=== PATIENT | female | born 1960 | race Caucasian/White ===

== ENCOUNTER 2020-07-27 15:02 | Observation (INO) | payer SELFPAY ==
--- NOTE | ~2020-07-27 | CT_ITS ---
EXAMINATION: CT abdomen pelvis wo con DATE: 07/27/2020 17:51 INDICATION: Abdominal pain TECHNIQUE: Computed tomography (CT) of the abdomen and pelvis was performed without intravenous contr ast. The dose-length product was 1158.01 mGy-cm. Automated exposure control and iterative reconstruct ion technique were employed. COMPARISON: None. FINDINGS: Lung bases are unremarkable. Heart size is normal. No significant pleural or pericardial ef fusion. No significant vascular abnormality. No lymphadenopathy. The liver, spleen, pancreas, adrenal glands and kidneys are unremarkable. There is a fat-containing u mbilical hernia. No abnormal pelvic masses or fluid collections. Uterus is surgically absent. No foca l bowel abnormalities. No acute osseous abnormality. IMPRESSION: 1. No acute abdominal abnormality. Reviewed, dictated and finalized at location A.
[2020-07-27 15:09] VITALS: BP 151/68; PULSE 98; O2SAT 100
[2020-07-27 15:56] LABS: Hemoglobin 13.2 g/dL (12.0-15.0); Immature Platelet Fraction Pct 4.3 % (0.9-11.2); Mean Corpuscular Hemoglobin 30.4 pg (26-34); Mean Corpuscular Volume 92.2 fl (80-100); Mean Platelet Volume 9.9 fl (7.4-10.4); Platelet Count Result 641 k/mm3 (150-375); Red Blood Count 4.34 M/mm3 (4.2-5.4); Red Cell Distribution Width 14.7 % (11.5-14.5); White Blood Count 29.1 K/mm3 (4.5-10.0)
[2020-07-27 16:08] LABS: Add Urine Microscopic? YES; Appearance Urine Cloudy (Clear); Bacteria Urine Trace /hpf; Bilirubin Urine Negative (Negative); Blood Urine Negative (Negative); Color Urine Yellow (Yellow); Glucose Urine UA Negative (Negative); Hyaline Casts Urine 30-49 /lpf; Ketones Urine Negative (Negative); Leukocyte Esterase Ur Negative LEU/UL (Negative); Mucus Urine Rare /lpf; Nitrate Urine Negative (Negative); Protein Urine 2+ mg/dL (Negative); RBC Urine 0-2 /hpf (0-2); Specific Grav Ur 1.018 (1.001-1.035); Squamous Epithelial Cell Urine Occasional /hpf (Few); Urobilinogen Urine Negative mg/dL (<2.0); WBC Urine 0-3 /hpf
[2020-07-27 16:14] LABS: Lipase 89 U/L (23-300)
[2020-07-27 16:16] LABS: Lymphocytes Absolute Manual 4.94 K/mm3 (1.1-4.5); Monocytes Absolute Manual 1.74 K/mm3 (0.1-0.90); Monocytes Percent Manual 6 % (3-9); Neutrophils Percent Manual 77 % (46-73); Platelet Estimate Increased (Adequate); Total Cells Counted 100
[2020-07-27 16:17] LABS: Anisocytosis 2+ (NORMAL)
[2020-07-27] MEDS: HYOSCYAMINE SULFATE 0.125 MG TABLET PO (16:38)
[2020-07-27 17:07] VITALS: BP 147/82; PULSE 84; RESP 18; TEMP 36.1; O2SAT 99
[2020-07-27] MEDS: SODIUM CHLORIDE 0.9% IV 1,000 ML 999 ML IV CONT ×2 (17:24→18:24)
[2020-07-27] MEDS: FAMOTIDINE 20 MG/2 ML VIAL IV PUSH (17:24)
[2020-07-27] MEDS: ONDANSETRON INJ 4 MG/2 ML VIAL IV PUSH (17:24)
[2020-07-27 17:27] LABS: Alanine Aminotransferase 109 U/L (4-35); Albumin Level 4.5 g/dL (3.5-5.1); Alkaline Phosphatase 130 U/L (38-126); Anion Gap 13 mmol/L (8-16); Aspartate Amino Transferase 84 U/L (14-36); Bilirubin,Total 0.9 mg/dL (0.2-1.3); Blood Urea Nitrogen 63 mg/dL (7-17); Calcium 9.9 mg/dL (8.4-10.2); Carbon Dioxide 23 mmol/L (22-30); Chloride 101 mmol/L (98-107); Estimated CRCL calculation 26 ml/min; Estimated Glomerular Filt Rate 21; Glucose 135 mg/dL (65-105); Potassium 3.9 mmol/L (3.4-5.0); Sodium 137 mmol/L (137-145)
[2020-07-27 17:33] LABS: Estimated CRCL calculation 24 ml/min; Estimated Glomerular Filt Rate 19
[2020-07-27 18:21] VITALS: BP 142/52; PULSE 82; RESP 16; O2SAT 97
--- NOTE | 2020-07-27 18:53 | ED.ABDPAIN ---
HPI - Abdominal Pain General Chief Complaint: Abdominal Pain Stated Complaint: abd pain Time Seen by Provider: 07/27/20 15:08 Source: patient, family and RN notes reviewed Mode of arrival: ambulatory Limitations: no limitations History of Present Illness HPI narrative: Patient is a 59-year-old female who presents to emergency department for evaluation of abdominal pain that is periumbilical in nature and has been going on for the last several days noting that she has been having frequent diarrhea with up to 8 episodes of diarrhea per day. Patient denies rectal bleeding or melena. Patient notes nausea without emesis. Patient with history of IBS and fibromyalgia. Patient notes that she had a steroid injection several days before. Patient denies antibiotic use or other long illnesses Related Data Allergies Allergy/AdvReac Type Severity Reaction Status Date / Time No Known Allergies Allergy Verified 07/27/20 15:14 Review of Systems Review of Systems: All systems reviewed & are unremarkable except as noted in HPI and below PMFSH Past Medical History Medical History Fibromyalgia Irritable bowel syndrome Social History Social History (Updated 07/27/20 @ 19:00 by Hari Macario PA-C) Smoking status: Never smoker Exam Narrative: Exam Narrative: GENERAL: Well-appearing, well-nourished, and in no acute distress. HEAD: Normocephalic, atraumatic. EYES: PERRLA and EOMI. ENT: Nares clear, no rhinorrhea or epistaxis. Mucous membranes moist. CHEST: Clear to auscultation. No respiratory distress. No wheezes rales or rhonchi HEART: Regular rate and rhythm. No murmur heard. Normal peripheral pulses. ABDOMEN: Soft, periumbilical abdominal tenderness, nondistended EXTREMITIES: Normal range of motion. No edema. SKIN: Warm, dry, no rash. NEURO: No focal deficits. Alert and oriented x3. PSYCH: Normal mood and affect. Course Course Emergency Course: Patient in the room at this time with renal insufficiency and injury likely secondary to dehydration from diarrhea patient denies history of kidney disease or similar occurrence in the past had improvement with medications to include [address] imaging did not reveal any high risk findings or concerns. Patient's leukocytosis could potentially be related to steroid injection. Patient will be kept in hospital and hydrated overnight and reevaluate in the morning Consultations Consultation #1: Discussed case with the hospitalist who is agreed to accept the patient Date: 07/27/20 Time: 19:02 Vital Signs Vital signs: Vital Signs Pulse Rate 98 07/27/20 15:09 Blood Pressure 151/68 H 07/27/20 15:09 Pulse Oximetry 100 07/27/20 15:09 Temperature 97.0 F L 07/27/20 17:07 Pulse Rate 82 07/27/20 18:21 Respiratory Rate 16 07/27/20 18:21 Blood Pressure 142/52 H 07/27/20 18:21 Pulse Oximetry 97 07/27/20 18:21 MDM - Abdominal Pain MDM Narrative Medical decision making narrative: Patient will be continued to be hydrated and brought into the hospital for further evaluation lactic acid was slightly elevated could be from dehydration patient agreeing to stay in hospital. Lab Data Result diagrams: 07/27/20 15:48 07/27/20 17:30 Labs: Lab Results 07/27/20 07/27/20 07/27/20 Range/Units 15:42 15:48 15:48 WBC 29.1 H (4.5-10.0) K/mm3 RBC 4.34 (4.2-5.4) M/mm3 Hgb 13.2 (12.0-15.0) g/dL Hct 40.0 (37.0-47.0) % MCV 92.2 (80-100) fl MCH 30.4 (26-34) pg MCHC 33.0 (32-36) g/dl RDW 14.7 H (11.5-14.5) % Plt Count 641 H (150-375) k/mm3 MPV 9.9 (7.4-10.4) fl Immature Gran % (Auto) Not Reportable Neut % (Auto) Not Reportable Lymph % (Auto) Not Reportable [place] % (Auto) Not Reportable Eos % (Auto) Not Reportable Baso % (Auto) Not Reportable Lymph # (Auto) Not Reportable [place] # (Auto) Not Reportable
[2020-07-27 19:04] LABS: Lactic Acid Reflex 2.6 mmol/L (0.7-2.1)
[2020-07-27 20:39] VITALS: BP 155/59; PULSE 89; RESP 16; O2SAT 100
--- NOTE | 2020-07-27 21:00 | PM.IMHP ---
H&P: HPI History of Present Illness Date/Time: 07/27/20 21:00 Chief Complaint: Abdominal cramping and diarrhea. Narrative: This is a pleasant 59-year-old female with hypertension, irritable bowel syndrome, and fibromyalgia who presented to the emergency department earlier today via private vehicle for evaluation of abdominal cramping and diarrhea. She has suffered from irritable bowel syndrome for many years, alternating between diarrhea and constipation. On Thursday she developed diarrhea and has had up to 8 episodes of watery, brown diarrhea each day since that time. She has also had periumbilical abdominal cramping which has been intermittent and not severe enough for her to take analgesics. Additionally her appetite has been poor and she has been slightly nauseated. She gives no significant aggravating or alleviating factors, and denies that her symptoms are better or worse with food. She denies fever, chills, sweats, vomiting, melena, hematochezia, and mucoid stools. No significant GERD or indigestion. No recent antibiotic use and she has not been around anyone with similar symptoms. She flew to the area from [place] a couple of days ago for a family wedding tomorrow, but has not had any travel aside from that. Of note, the patient received a steroid injection into her right hip last week and with her previous injection she had an increase in white blood cell count at that time[place] [id number]. Review of Systems Review of Systems: Narrative: Twelve systems were reviewed with pertinent positives and negatives as per HPI. No fever, chills, or sweats. She denies sinus congestion, rhinorrhea, otalgia, and odynophagia. No chest pain or shortness of breath. She has no known history of heart murmur however a she is followed by a impregnating machine operator for her hypertension and she had an echocardiogram done last spring and she was not told of any valvular disease. No syncope or near syncope. Occasionally she will get short of breath when climbing up a flight of steps but she thinks that is due to being out of shape. No chest pain. She denies orthopnea, PND, and any significant lower extremity edema. No known history of kidney disease. She has not noticed a change in urine output. Except as documented, all other systems were reviewed and are negative. [facility], [facility] Past Medical History Medical History (Updated 07/27/20 @ 23:46 by Bernadine Nguyễn PA-C) Fibromyalgia Hypertension Irritable bowel syndrome Migraine headache Surgical History Surgical History (Updated 07/27/20 @ 23:40 by Bernadine Nguyễn PA-C) History of appendectomy History of cholecystectomy History of total hysterectomy For uterine fibroids. Family History Family History (Updated 07/27/20 @ 23:41 by Bernadine Nguyễn PA-C) Mother Liver cirrhosis secondary to nonalcoholic steatohepatitis ([place]) Father Leukemia Social History Social History (Updated 07/27/20 @ 23:41 by Bernadine Nguyễn PA-C) Social History: The patient lives in [place] with her . They have 2 grown sons. 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 Lifelong nonsmoker. No alcohol or illicit drug use. She designates her , Genaro, as her surrogate decision maker. Code status: Full code. Meds Home Medications and Allergies Allergies Allergy/AdvReac Type Severity Reaction Status Date / Time No Known Allergies Allergy Verified 07/27/20 15:14 Vital Signs Vital Signs - 24 hr 07/27/20 15:09 07/27/20 17:07 07/27/20 18:21 Temperature 97.0 F L Pulse Rate 98 84 82 Respiratory Rate 18 16 Blood Pressure 151/68 H 147/82 H 142/52 H Pulse Oximetry 100 99 97 07/27/20 20:39 Temperature Pulse Rate 89 Respiratory Rate 16 Blood Pressure 155/59 H Pulse Oximetry 100 Exam Narrative: Exam Narrative: General: Well-developed female sitting up in bed no distress. She appears younger than her stated age. Weight: 99.79 kil
[2020-07-27 21:53] LABS: Reflex Lactic Acid Yes or No Add Lactic
[2020-07-27 22:26] LABS: Lactic Acid 0.8 mmol/L (0.7-2.1)
[2020-07-27 23:58] VITALS: BP 125/54; PULSE 76; RESP 20; TEMP 36.2; O2SAT 97; BMI 37.9; BMI 38.9
--- NOTE | 2020-07-28 00:05 | ADMGEN ---
This patient, Rosario Raygoza, was admitted to 3 [facility] Surg Room 315-01. Patient/family oriented to hospital policies and general routines including ID bracelet, bed and alarms, visiting hours, pain management, procedures, bathroom and other care routines, personal items, smoking policy, room service/diet, and visiting hours. Information on how to activate the Rapid Response Team has been discussed. Patient/Family are encouraged to report perceived risks to care and to ask questions if they do not understand what they are told or what they should do.
[2020-07-28] MEDS: SODIUM CHLORIDE 0.9% IV 1,000 ML 100 ML IV CONT (02:47)
[2020-07-28] MEDS: levoFLOXacin 500 MG/D5W 100 ML 500 MG/100 ML BAG 66.67 MG IVPB (02:48)
[2020-07-28] MEDS: metroNIDAZOLE 500 MG/ISO 100ML 500 MG/100 ML BAG 100 MG IVPB ×3 (05:02→12:16)
[2020-07-28 06:00] VITALS: BP 126/102; PULSE 78; RESP 20; TEMP 36.3; O2SAT 99
[2020-07-28 06:11] LABS: Alanine Aminotransferase 72 U/L (4-35); Albumin Level 3.7 g/dL (3.5-5.1); Alkaline Phosphatase 99 U/L (38-126); Anion Gap 7 mmol/L (8-16); Aspartate Amino Transferase 49 U/L (14-36); Bilirubin,Total 0.5 mg/dL (0.2-1.3); Blood Urea Nitrogen 53 mg/dL (7-17); Calcium 8.8 mg/dL (8.4-10.2); Carbon Dioxide 24 mmol/L (22-30); Chloride 105 mmol/L (98-107); Estimated CRCL calculation 45 ml/min; Estimated Glomerular Filt Rate 38; Glucose 118 mg/dL (65-105); Magnesium 1.9 mg/dL (1.6-2.3); Potassium 3.6 mmol/L (3.4-5.0); Sodium 136 mmol/L (137-145)
[2020-07-28 06:25] LABS: Basophils Absolute Auto 0.1 K/mm3 (0.0-0.1); Basophils Percent Auto 0.2 % (0.2-1.2); Eosinophils Absolute Auto 0.1 K/mm3 (0-0.3); Eosinophils Percent Auto 0.4 % (0-4.4); Hematocrit 33.5 % (37.0-47.0); Hemoglobin 10.5 g/dL (12.0-15.0); Immature Granulocyte Absolute 0.22 K/mm3 (0.00-0.031); Lymphocytes Absolute Auto 2.41 K/mm3 (0.9-3.2); Lymphocytes Percent Auto 10.7 % (18.3-44.2); Mean Corpuscular HGB Conc 31.3 g/dl (32-36); Mean Corpuscular Hemoglobin 29.5 pg (26-34); Mean Corpuscular Volume 94.1 fl (80-100); Mean Platelet Volume 9.6 fl (7.4-10.4); Monocytes Absolute Auto 1.1 K/mm3 (0.1-0.6); Neutrophils Absolute Auto 18.7 K/mm3 (1.3-6.7); Neutrophils Percent Auto 82.7 % (45.5-73.1); Platelet Count Result 459 k/mm3 (150-375); Red Blood Count 3.56 M/mm3 (4.2-5.4); Red Cell Distribution Width 14.7 % (11.5-14.5); White Blood Count 22.6 K/mm3 (4.5-10.0)
[2020-07-28 07:34] LABS: Anisocytosis 1+ (NORMAL); Hypochromasia 1+ (NORMAL); Large Platelets Present; Platelet Estimate Increased (Adequate)
--- NOTE | 2020-07-28 07:42 | ECG_ITS ---
Measurements Intervals [place] Rate: 80 P: 61 ME: 145 QRS: -21 QRSD: 111 T: 101 QT: 384 QTc: 444 Interpretive Statements SINUS RHYTHM INTRAVENTRICULAR CONDUCTION DELAY LEFT VENTRICULAR HYPERTROPHY AND ST-T CHANGE POOR R WAVE PROGRESSION, ANTERIOR LEADS CONSIDER LATERAL INFARCT, AGE INDETERMINATE BASELINE ARTIFACT- I, III, AVL, V1-V2 ABNORMAL ECG Electronically Signed On 07-28-2020 14:57:12 CDT by Tyree Andrade D.O.
[2020-07-28 08:00] VITALS: BP 145/60
[2020-07-28 08:32] VITALS: O2SAT 99
[2020-07-28] MEDS: DULoxetine HCL 60 MG CAPSULE.DR 120 MG PO (08:56)
[2020-07-28] MEDS: amLODIPine BESYLATE 2.5 MG TABLET PO (08:56)
[2020-07-28] MEDS: GABAPENTIN 300 MG CAPSULE PO ×2 (08:56→12:16)
[2020-07-28 12:45] LABS: Hemoglobin 10.5 g/dL (12.0-15.0)
[2020-07-28 12:56] LABS: Anion Gap 10 mmol/L (8-16); Blood Urea Nitrogen 48 mg/dL (7-17); Calcium 8.8 mg/dL (8.4-10.2); Carbon Dioxide 23 mmol/L (22-30); Chloride 105 mmol/L (98-107); Estimated CRCL calculation 49 ml/min; Estimated Glomerular Filt Rate 42; Glucose 109 mg/dL (65-105); Potassium 3.7 mmol/L (3.4-5.0); Sodium 138 mmol/L (137-145)
[2020-07-28 14:00] VITALS: BP 148/54; PULSE 81; RESP 16; TEMP 36.8; O2SAT 98
[2020-07-28 14:54] LABS: IFOB Positive Control Positive; Immunochemical Fecal Occult Bl Negative (N)
--- NOTE | 2020-07-28 15:30 | PM.DS ---
DS: Admitting Diagnosis Admitting Diagnosis Admitting Diagnosis: diarrhea, arielle DS: Discharge Diagnosis Discharge Diagnosis (1) Acute kidney injury: Code(s): N17.9 - Acute kidney failure, unspecified Status: Acute (2) Dehydration: Code(s): E86.0 - Dehydration Status: Acute (3) Diarrhea: Code(s): R19.7 - Diarrhea, unspecified Status: Acute (4) Leukocytosis: Code(s): D72.829 - Elevated white blood cell count, unspecified Status: Acute (5) Elevated LFTs: Code(s): R79.89 - Other specified abnormal findings of blood chemistry Status: Acute (6) Hypertension: Code(s): I10 - Essential (primary) hypertension Status: Acute (7) Heart murmur: Code(s): R01.1 - Cardiac murmur, unspecified Status: Acute DS: Summary Hospital Course Hospital Course: Date of exam 07/28/20 Patient is a 59-year-old female with a past medical history of hypertension, irritable bowel syndrome, and fibromyalgia who presented emergency room for abdominal pain and diarrhea. Patient states that she traveled here from [place] for a family wedding and started having frequent diarrhea. She has IBS and thought this was likely her IBS but she continued to have multiple bouts of diarrhea and had about 8 episodes per day. She denied any bleeding or melena but just watery stool. She has no history of recent antibiotic use or sick contacts. She had a steroid injection several days prior but other than that, no other recent medical findings. In the ER her temperature was 97.0?, pulse 82, respiratory rate 16, blood pressure 142/52, pulse ox 97 on room air. Initial white blood cell count 29.1. Platelets 641. Creatinine elevated 2.6. Initially her lactic acid was 2.6 but then improved with IV fluids. Her AST and ALT were elevated [address] of the abdomen pelvis showed no acute abdominal abnormality. Patient was admitted to the hospitalist service for observation. The next day she only had a few episodes of diarrhea and was feeling much better. She was able to eat a regular diet. Her liver enzymes improved as did her creatinine which was 1.3 at discharge. As for her white blood cell count, it improved with IV fluids down to 22.6. I do not suspect this is reflective of an infection at this time. It was probably a combination of her steroid injection and dehydration. She had no temperatures throughout her stay. Blood cultures were drawn and have no growth today and will be monitored until finalized. She was finally able to produce a stool sample and this was sent to the lab. These are pending and will be monitored until finalized. She also had a murmur that she was unaware of. She had no worrisome cardiac signs or symptoms since as chest pain, dyspnea on exertion, passing out, or lower extremity swelling. She plans to follow-up with her primary care physician about this when she gets back to [place]. The day of discharge she was tolerating a regular diet and wanting to be discharged. She said she felt much better and back to her baseline. She promised to follow-up with her family practitioner as soon as she gets home which she plans to go home next week. She was educated about the worrisome signs and symptoms to come back to emergency room for and was discharged stable condition. She was placed on Levaquin and Flagyl to cover for pathogens as we await the stool cultures. Status at Discharge Functional status at discharge: independent ambulation Overall status at discharge: patient is progressing back to baseline Time Spent with Patient Time attestation: Total time spent providing and/or coordinating discharge services:34 min Time spent: Greater than 30 minutes Exam Narrative: Exam Narrative: General: Well developed well nourished patient in NAD HEENT: normocephalic Neck: supple Neuro: Alert and oriented x4 CV:RRR with a to a 6 systolic murmur heard in all areas Resp:
--- NOTE | 2020-08-03 13:14 | PC.NURSE ---
Blood and stool cx are negative.
== END 2020-07-28 18:55 | disposition home or self-care (01) ==
LOC: ANHED 19:34 → ANH3MEDSUR 23:13
PROVIDERS: Emergency Medicine Emergency Medical Services; Physician Assistant; Admitting Provider Internal Medicine; Emergency Provider Emergency Medicine; Visit Provider Physician Assistant
DX: N17.9 Acute kidney failure, unspecified (principal); E86.0 Dehydration; R19.7 Diarrhea, unspecified; D72.829 Elevated white blood cell count, unspecified; R79.89 Other specified abnormal findings of blood chemistry; I10 Essential (primary) hypertension; R01.1 Cardiac murmur, unspecified; M79.7 Fibromyalgia
CPT/HCPCS: 36415; 74176; 80048; 80053; 81001; 82274; 83605; 83690; 83735; 84443; 85014; 85018; 85025; 85055; 87040; 87045; 87046; 87324; 87427; 93005; 96361; 96365; 96366; 96374; 96375; 99285; A9270; G0378; G0379; J1956; J2405; J7030